=== PATIENT | male | born 1975 | race Caucasian/White ===

== ENCOUNTER → 2019-04-30 19:44 | Outpatient (CLI) | payer OTHER, SELFPAY ==
--- NOTE | 2019-04-30 | DI.MRI.S_ITS ---
PROCEDURE: MR HAND RT WO CON INDICATIONS: RUPTURE OF FLEXOR TENDON OF RIGHT HAND TECHNIQUE: Noncontrast oblique coronal T1 spin echo and T2 fast spin echo with fat saturation, axial and sagittal T2 fast spin echo with fat saturation, through the thumb. COMPARISON: None. FINDINGS: Image quality: Excellent. Bones: The bones are normally aligned. Mild edema involving first MTP joint and interphalangeal joint are seen suggestive of bony contusion. No fracture or dislocation. No intra-osseous lesions. First carpometacarpal joint: On sagittal images, the dorsal radial ligament and posterior oblique ligament appear intact. The intermetacarpal ligament between the 1st and 2nd metacarpal bases also appears intact. On the volar aspect, the deep and superficial layers of the anterior oblique ligament appear intact. First metacarpophalangeal joint: The proper and accessory components of the radial collateral ligament appears intact, along with overlying fibers of the abductor pollicis brevis tendon. The proper and accessory components of the ulnar collateral ligaments appear intact, along with overlying fibers of the adductor pollicis muscle. The aponeurosis of the adductor pollicis muscle also appears normal. The volar plate appears intact on sagittal images, situated between the radial and ulnar sesamoids. Thenar muscles: The superficial abductor pollicis longus muscle appears normal, with tendon inserting on the radial base of the first proximal phalanx. The opponens pollicis muscle also appears normal, inserting on the first metacarpal shaft. The flexor pollicis brevis muscle appears normal, with tendon inserting on the radial sesamoid and first proximal phalanx. The oblique and transverse heads of the adductor pollicis muscle appear normal, inserting on the ulnar sesamoid and proximal phalanx as part of the adductor aponeurosis. Flexor pollicis longus tendon: There is full-thickness rupture of flexor pollicis longus tendon at the level just below the A2 alan with 2.5 cm proximal retraction of torn tendon fibers to the level distal to the A1 alan. There is suggestion of disruption involving proximal portion of the A1 alan at the level of first metacarpal head. The A2 alan at the level of interphalangeal joint appears intact. Extensor tendons: The extensor pollicis brevis tendon appears intact, coursing radial to the extensor pollicis longus tendon and inserting on the dorsal base of the proximal phalanx, blending with the dorsal plate of the first MCP joint. The extensor pollicis longus tendon appears intact as it inserts on the dorsal base of the distal phalanx. The sagittal band at the level of the first MCP joint appears intact. The abductor pollicis longus tendon slips appear intact at the radial aspect of the proximal phalanx, proximal to the abductor pollicis brevis tendon insertion. Miscellaneous: No ganglion cysts. IMPRESSION: 1. Full-thickness rupture involving distal extensor pollicis longus tendon just proximal to the first interphalangeal joint with 2.5 cm proximal retraction of torn tendon fibers to the level just proximal to first MCP joint. 2. Findings are suggestive of disruption involving the proximal portion of A1 alan at the level of first metacarpal head. 3. Radial and ulnar collateral ligaments of the first interphalangeal joint and MCP joint are grossly intact. 4. Suggestion of mild bony contusion involving first MTP joint and interphalangeal joint. No fracture or dislocation. Dictated by: Ascencion Weldon M.D. on 05/01/2019 at 10:08 Approved by: Ascencion Weldon M.D. on 05/01/2019 at 10:21
== END ==
PROVIDERS: Family Provider Family Medicine; PCP Family Medicine; Visit Provider Orthopaedic Surgery
DX: S66.011A Strain of long flexor muscle, fascia and tendon of right thumb at wrist and hand level, initial encounter (principal); X58.XXXA Exposure to other specified factors, initial encounter
CPT/HCPCS: 73218